=== PATIENT | male | born 1945 | race Caucasian/White ===

== ENCOUNTER → 2017-12-01 | Outpatient (CLI) | payer OTHER ==
[2017-12-01 16:14] LABS: BASOPHILS # (AUTO) 0.1 (0.0-0.1); BASOPHILS % 0.4 % (0.0-1.0); EOSINOPHILS # (AUTO) 0.3 (0.0-0.4); HEMOGLOBIN 13.2 g/dL (14.0-18.0); LYMPHOCYTES # (AUTO) 1.4 (1.0-3.2); LYMPHOCYTES % 8.5 % (18.0-39.1); MEAN CORPUSCULAR HEMOGLOBIN 29.6 pg (28-32); MEAN CORPUSCULAR HGB CONC 34.7 g/dL (31-35); MEAN CORPUSCULAR VOLUME 85.2 fL (81-99); MONOCYTES % 6.3 % (4.4-11.3); NEUTROPHILS # (AUTO) 13.3 (2.1-6.9); PLATELET COUNT 313 x10e3/uL (140-360); RED BLOOD COUNT 4.46 x10e6/uL (4.3-5.7); RED CELL DISTRIBUTION WIDTH 13.6 % (11.7-14.4)
== END ==
LOC: NPA 14:55
PROVIDERS: ATTEND Internal Medicine
DX: Z02.89 Encounter for other administrative examinations (principal)
CPT/HCPCS: 36415; 85025

== ENCOUNTER → 2017-12-02 | Outpatient (CLI) | payer OTHER ==
[2017-12-02 16:49] LABS: ANION GAP 15.8 mmol/L (8-16); BLOOD UREA NITROGEN 19 mg/dL (7-26); CARBON DIOXIDE 34 mmol/L (22-29); CHLORIDE 92 mmol/L (98-107); SODIUM 139 mmol/L (136-145)
[2017-12-02 16:50] LABS: ALANINE AMINOTRANSFERASE 17 IU/L (0-55); ALBUMIN 2.7 g/dL (3.5-5.0); ALBUMIN/GLOBULIN RATIO 0.6 (0.8-2.0); ALKALINE PHOSPHATASE 57 IU/L (40-150); BUN/CREATININE RATIO 27 (6-25); CALCIUM 9.1 mg/dL (8.4-10.2); EST GLOMERULAR FILTRATION RATE > 60 ML/MIN (60-); GLUCOSE 87 mg/dL (74-118); POTASSIUM 2.8 mmol/L (3.5-5.1)
[2017-12-02 16:51] LABS: BASOPHILS # (AUTO) 0.1 (0.0-0.1); BASOPHILS % 0.4 % (0.0-1.0); EOSINOPHILS # (AUTO) 0.3 (0.0-0.4); EOSINOPHILS % 2.6 % (0.0-6.0); HEMATOCRIT 38.3 % (38.2-49.6); HEMOGLOBIN 13.3 g/dL (14.0-18.0); LYMPHOCYTES # (AUTO) 1.5 (1.0-3.2); LYMPHOCYTES % 11.4 % (18.0-39.1); MEAN CORPUSCULAR HEMOGLOBIN 29.8 pg (28-32); MEAN CORPUSCULAR HGB CONC 34.7 g/dL (31-35); MEAN CORPUSCULAR VOLUME 85.7 fL (81-99); MONOCYTES % 7.4 % (4.4-11.3); NEUTROPHILS % 77.7 % (38.7-80.0); PLATELET COUNT 325 x10e3/uL (140-360); RED BLOOD COUNT 4.47 x10e6/uL (4.3-5.7); RED CELL DISTRIBUTION WIDTH 13.6 % (11.7-14.4)
== END ==
LOC: NPA 11:30
PROVIDERS: ATTEND Internal Medicine
DX: Z02.89 Encounter for other administrative examinations (principal)
CPT/HCPCS: 36415; 80053; 85025; 87070; 87205

== ENCOUNTER → 2017-12-06 | Outpatient (CLI) | payer OTHER ==
[2017-12-07 13:13] LABS: HEMATOCRIT 38.3 % (38.2-49.6); HEMOGLOBIN 13.3 g/dL (14.0-18.0); MEAN CORPUSCULAR HEMOGLOBIN 29.8 pg (28-32); MEAN CORPUSCULAR HGB CONC 34.7 g/dL (31-35); MEAN CORPUSCULAR VOLUME 85.7 fL (81-99); PLATELET COUNT 325 x10e3/uL (140-360); RED BLOOD COUNT 4.47 x10e6/uL (4.3-5.7); RED CELL DISTRIBUTION WIDTH 13.6 % (11.7-14.4)
[2017-12-07 13:17] LABS: ALANINE AMINOTRANSFERASE 17 IU/L (0-55); ALBUMIN 2.7 g/dL (3.5-5.0); ALBUMIN/GLOBULIN RATIO 0.6 (0.8-2.0); ALKALINE PHOSPHATASE 57 IU/L (40-150); ANION GAP 15.8 mmol/L (8-16); BLOOD UREA NITROGEN 19 mg/dL (7-26); BUN/CREATININE RATIO 27 (6-25); CALCIUM 9.1 mg/dL (8.4-10.2); CARBON DIOXIDE 34 mmol/L (22-29); CHLORIDE 92 mmol/L (98-107); EST GLOMERULAR FILTRATION RATE > 60 ML/MIN (60-); GLUCOSE 87 mg/dL (74-118); SODIUM 139 mmol/L (136-145)
[2017-12-07 13:18] LABS: POTASSIUM 2.8 mmol/L (3.5-5.1)
== END ==
LOC: NPA 09:15
PROVIDERS: ATTEND Internal Medicine
DX: Z02.89 Encounter for other administrative examinations (principal)
CPT/HCPCS: 36415; 80053; 85007; 85027; 87070; 87205

== ENCOUNTER → 2017-12-08 | Outpatient (CLI) | payer OTHER ==
[2017-12-08 14:19] LABS: ANION GAP 10.8 mmol/L (8-16); BLOOD UREA NITROGEN 13 mg/dL (7-26); BUN/CREATININE RATIO 14 (6-25); CARBON DIOXIDE 26 mmol/L (22-29); CHLORIDE 107 mmol/L (98-107); CREATININE, SERUM 0.92 mg/dL (0.72-1.25); EST GLOMERULAR FILTRATION RATE > 60 ML/MIN (60-); GLUCOSE 105 mg/dL (74-118); POTASSIUM 3.8 mmol/L (3.5-5.1); SODIUM 140 mmol/L (136-145)
== END ==
LOC: NPA 11:30
PROVIDERS: ATTEND Internal Medicine
DX: Z02.89 Encounter for other administrative examinations (principal)
CPT/HCPCS: 36415; 80048

== ENCOUNTER 2018-01-23 01:27 | Observation (INO) | payer MEDICARE ==
[2018-01-23] VITALS (8 sets, daily range): BP systolic 101–125; BP diastolic 55–67
[~2018-01-23] VITALS: Ht 195.6 cm; Wt 69.9 kg
[2018-01-23] MEDS ORDERED: DIATRIZOATE MEGL/DIATRIZOA SOD 30 ML BTL PO ONE (02:33)
[2018-01-23 03:09] LABS: BASOPHILS % 0.3 % (0.0-1.0); EOSINOPHILS % 0.2 % (0.0-6.0); HEMATOCRIT 35.8 % (38.2-49.6); HEMOGLOBIN 11.8 g/dL (14.0-18.0); LYMPHOCYTES # (AUTO) 1.8 (1.0-3.2); LYMPHOCYTES % 13.5 % (18.0-39.1); MEAN CORPUSCULAR HEMOGLOBIN 29.1 pg (28-32); MEAN CORPUSCULAR VOLUME 88.2 fL (81-99); MONOCYTES # (AUTO) 1.1 (0.2-0.8); MONOCYTES % 8.3 % (4.4-11.3); NEUTROPHILS # (AUTO) 10.1 (2.1-6.9); NEUTROPHILS % 77.4 % (38.7-80.0); PLATELET COUNT 457 x10e3/uL (140-360); RED BLOOD COUNT 4.06 x10e6/uL (4.3-5.7); RED CELL DISTRIBUTION WIDTH 14.8 % (11.7-14.4)
--- NOTE | 2018-01-23 03:11 | Diagnostic Imaging Report ---
CHEST SINGLE (PORTABLE), 01/23/2018 2:46 AM Technique: CHEST SINGLE (PORTABLE) Comparison: None available. Clinical history: \S\needs g-tube, trach with increased secretions \[id number] \S\254 Findings: See Impression Impression: Overlying apparatus obscures the lung apices. 1. Lines/Tubes: Tracheostomy. Right port tip overlies the high right atrium. 2. Normal cardiomediastinal silhouette for technique. 3. No consolidation, effusion or pneumothorax. Signed by: Dr Serena Sellers MD on 01/23/2018 3:07 AM
[2018-01-23 03:19] LABS: INR 1.18; PROTHROMBIN TIME 14.1 seconds (11.9-14.5)
[2018-01-23 03:20] LABS: PARTIAL THROMBOPLASTIN TIME 30.5 seconds (23.8-35.5)
[2018-01-23 03:26] LABS: ALANINE AMINOTRANSFERASE 15 IU/L (0-55); ALBUMIN 2.4 g/dL (3.5-5.0); ALBUMIN/GLOBULIN RATIO 0.5 (0.8-2.0); ALKALINE PHOSPHATASE 43 IU/L (40-150); ANION GAP 12.6 mmol/L (8-16); BLOOD UREA NITROGEN 24 mg/dL (7-26); BUN/CREATININE RATIO 44 (6-25); CALCIUM 9.7 mg/dL (8.4-10.2); CARBON DIOXIDE 30 mmol/L (22-29); CHLORIDE 97 mmol/L (98-107); CREATINE KINASE 24 IU/L (30-200); CREATININE, SERUM 0.55 mg/dL (0.72-1.25); EST GLOMERULAR FILTRATION RATE > 60 ML/MIN (60-); GLUCOSE 94 mg/dL (74-118); POTASSIUM 3.6 mmol/L (3.5-5.1); SODIUM 136 mmol/L (136-145)
[2018-01-23] MEDS ORDERED: ONDANSETRON HCL INJ 2 MG/ML VIAL IV PRN (03:45)
[2018-01-23] MEDS ORDERED: SODIUM CHLORIDE 0.9% 1000ML 1,000 ML IV SCH (03:45)
[2018-01-23] MEDS ORDERED: KETOROLAC TROMETHAMINE 30 MG/ML VIAL IV STA (03:56)
[2018-01-23] MEDS ORDERED: ACETAMINOPHEN 1000 MG/100 ML IV PRN (04:00)
[2018-01-23] MEDS ORDERED: MULTI-VITAMIN1 EACH PEG (04:04)
[2018-01-23] MEDS ORDERED: LANSOPRAZOLE30 MG PEG (04:04)
[2018-01-23] MEDS ORDERED: METFORMIN HCL850 MG PO (04:04)
[2018-01-23] MEDS ORDERED: COMBIVENT RESPIM4 GM IH (04:04)
[2018-01-23] MEDS ORDERED: ACIDOPHILUS1 EAC4 PEG (04:04)
[2018-01-23] MEDS ORDERED: ATIVAN1 MG PEG ×2 (04:04)
[2018-01-23] MEDS ORDERED: METOPROLOL TART25 MG PEG (04:04)
[2018-01-23] MEDS ORDERED: ATORVASTATIN CA20 MG PEG (04:04)
[2018-01-23] MEDS ORDERED: ACETAMINOPHEN325 M1 PEG (04:04)
[2018-01-23] MEDS ORDERED: THIAMINE HCL100 MG PEG (04:04)
[2018-01-23] MEDS ORDERED: MIRTAZAPINE15 MG PEG (04:04)
[2018-01-23] MEDS ORDERED: LISINOPRIL10 MG PEG (04:04)
[2018-01-23] MEDS ORDERED: FOLIC ACID1 MG PEG (04:04)
[2018-01-23] MEDS ORDERED: MELATONIN3 MG PEG (04:04)
[2018-01-23] MEDS ORDERED: FUROSEMIDE40 MG PEG (04:04)
[2018-01-23] MEDS ORDERED: ELIQUIS PEG (04:04)
[2018-01-23] MEDS ORDERED: ACETYLCYST200 MG/1 M INH (04:04)
[2018-01-23] MEDS ORDERED: DILTIAZEM HCL30 MG PEG (04:04)
[2018-01-23] MEDS ORDERED: ZINC OXIDE57 GM TOP (07:53)
[2018-01-23] MEDS ORDERED: LIDOCAINE HCL 2% LOCAL 20 ML VIAL ONE (09:40)
[2018-01-23] MEDS ORDERED: SODIUM CHLORIDE 0.9% 500ML 500 ML ONE (09:41)
[2018-01-23] MEDS ORDERED: SODIUM CHLORIDE 0.9% 1000ML 1,000 ML ONE (09:41)
[2018-01-23] MEDS ORDERED: IOPAMIDOL 300MG/ML 50ML INFUS..BTL IV ONE (09:41)
[2018-01-23] MEDS ORDERED: MIDAZOLAM HCL 2 MG/2 ML VIAL ONE (10:17)
[2018-01-23] MEDS ORDERED: FENTANYL CITRATE/PF 100MCG/2 ML INJ ONE (10:17)
--- NOTE | 2018-01-23 12:22 | Consultation ---
DATE OF CONSULTATION: January 23, 2018 REASON FOR CONSULTATION: Tracheostomy. HISTORY OF PRESENT ILLNESS: Mr. Hernandez is a resident at [facility] and I have been seeing the patient at [facility] for tracheostomy and chronic respiratory failure. Patient has history of laryngeal cancer and he underwent resection of laryngeal tumor and that resulted in a tracheostomy placement. He has a PEG tube as well. The patient was sent to the emergency room last night as the PEG tube fell out and needed G tube replacement. ER physician was unable to do it. The patient denies any complaints of chest pain, abdominal pain, nausea or vomiting. He is breathing okay. He complains of shortness of breath; however, he is saturating 90% on 28% to trach collar. IR was consulted and the G tube was replaced by them. REVIEW OF SYSTEMS: GENERAL: Denies any fever or chills. HEENT: Denies any head trauma or head injury. ENT denies any earache. CVS: Denies any chest pain. RESPIRATORY: Shortness of breath, has a tracheostomy. GI: Denies any nausea or vomiting. The rest of the review systems are negative except as in history of present illness. PAST MEDICAL HISTORY: History of malignant neoplasm of larynx, and the patient had resection of the larynx, hypertension, atrial fibrillation, possible COPD. Has history of smoking, tracheostomy. FAMILY AND SOCIAL HISTORY: Previous history of smoking. Currently living at [facility]. PHYSICAL EXAMINATION: VITALS: Temperature 97.8, pulse of 98, blood pressure 101/55. Respiratory rate of 18. O2 sat 98% on trach collar 28%. HEENT: Head is normocephalic, atraumatic. Pupils reactive. CHEST: Clear to auscultation bilaterally. He has a tracheostomy. HEART: S1 and S2 audible. ABDOMEN: The patient has a PEG tube in place. EXTREMITIES: No pedal edema. NEUROLOGIC: Awake and alert. LABORATORY DATA: White count 13,000. Hemoglobin 11.8, platelets 457,000. Chemistry: Sodium 136, potassium 3.6. Chloride 97, BUN 24, creatinine 0.5, INR is 1.18. ASSESSMENT AND PLAN: Mr. Hernandez is a 72-year-old male, care home resident of [facility]. Patient has a history of laryngeal cancer status post laryngectomy that resulted in a tracheostomy. Currently, respiratory status is stable. Status post G tube placement. Will follow along with Dr. Rodriguez here at [facility]. Patient can be a transferred back to [facility] once seen by Dr. Rodriguez. Stable from pulmonary standpoint. Job#: [id number]
[2018-01-23] MEDS ORDERED: IPRATROPIUM/ALBUTEROL SULFATE 4 GM INH INH PRN ×2 (13:15→17:30)
[2018-01-23] MEDS: LORAZEPAM 1 MG TAB PEG SCH (14:00)
--- NOTE | 2018-01-23 14:56 | History and Physical ---
HPI: A 72-year-old male with past medical history positive for laryngeal CA, hypertension, paroxysmal atrial fibrillation, CVA, COPD, status post tracheostomy, came here for an invasive radiology placement of feeding tube, which has been done already. Initially admitted to Dr. White, then transferred to Dr. Rodriguez today. REVIEW OF SYSTEMS: Patient is unable to communicate. PAST MEDICAL HISTORY: As I stated before, chronic respiratory failure, dysphagia, hypertension, paroxysmal atrial fibrillation, CVA, COPD, and laryngeal cancer. SOCIAL HISTORY: He has history of smoking. We do not know too much information beside that. PHYSICAL EXAMINATION VITAL SIGNS: Blood pressure 101/55, temperature 97.8, heart rate 75 per minute, respiratory rate is 18 per minute, oxygen saturation 98%. HEART: Showed irregularly irregular heart rate. Normal S1 and S2 sounds. LUNGS: Clear bilaterally. ABDOMEN: Soft. He had a PEG tube in place. EXTREMITIES: Show no evidence of cyanosis, edema, or trauma. LABORATORY DATA: On the blood work, we have BMP with a sodium of 136, potassium 3.6, chloride 97, CO2 of 30, BUN 24, creatinine 0.55, glucose 94. On the CBC, white blood count 13.0, hemoglobin 11.8, hematocrit 35.8, platelet count 450,000. PT 14.1, PTT 30.5. INR 1.18. AST 22, ALT 15. Total bilirubin 0.4, alkaline phosphatase 43. FINAL IMPRESSION 1. Dysphagia, status post percutaneous endoscopic gastrostomy tube placement, placed by invasive radiology. 2. Chronic respiratory failure. 3. Hypertension. 4. Paroxysmal atrial fibrillation. 5. Cerebrovascular accident. 6. Chronic obstructive pulmonary disease. PLAN OF TREATMENT: We are going to restart the PEG tube feedings, Jevity at 45 mL an hour, free water 200 mL q.6 hours. We are going to resume the home medications. Continue to monitor blood sugar q.6 hours. We might need to change the feeding tube to Glucerna since the patient has a history of diabetes. Job#: [id number] VAS
[2018-01-23] MEDS: LACTOBACILLUS ACIDOPHILUS CAPSULE PEG SCH (15:30)
[2018-01-23] MEDS: ACETAMINOPHEN 325 MG TAB PEG PRN ×2 (15:30→21:30)
[2018-01-23] MEDS: METFORMIN HCL 850 MG TAB PO SCH (15:30)
[2018-01-23] MEDS: METOPROLOL TARTRATE 25 MG TAB PEG SCH ×2 (15:30→21:30)
[2018-01-23] MEDS: APIXABAN 5 MG TABLET PO SCH (15:30)
[2018-01-23] MEDS: DILTIAZEM HCL 30 MG TAB PEG SCH ×2 (15:30→21:30)
[2018-01-23] MEDS: ACETYLCYSTEINE 20% INHAL SOLN 30 ML VIAL INH SCH (19:55)
[2018-01-23] MEDS ORDERED: ZINC OXIDE 10% TOP SCH (21:00)
[2018-01-23] MEDS: MELATONIN 3 MG TAB PEG SCH (21:30)
[2018-01-23] MEDS: PANTOPRAZOLE SODIUM 40 MG SUSPDR.PKT PEG SCH (21:30)
[2018-01-23] MEDS: ATORVASTATIN 20 MG TAB PEG SCH (21:30)
[2018-01-23] MEDS: MIRTAZAPINE 15 MG TAB PEG SCH (21:30)
[2018-01-23] MEDS: LORAZEPAM 1 MG TAB PEG PRN (22:05)
[2018-01-23] MEDS: ZINC OXIDE 30 GM TUBE TOP SCH (22:10)
[2018-01-24] VITALS (8 sets, daily range): BP systolic 98–134; BP diastolic 55–79
[2018-01-24] MEDS: LORAZEPAM 1 MG TAB PEG SCH ×2 (01:15→13:15)
[2018-01-24] MEDS: DILTIAZEM HCL 30 MG TAB PEG SCH ×3 (06:06→22:00)
[2018-01-24] MEDS: METOPROLOL TARTRATE 25 MG TAB PEG SCH ×3 (06:06→22:00)
[2018-01-24] MEDS: ACETYLCYSTEINE 20% INHAL SOLN 30 ML VIAL INH SCH ×4 (07:00→20:15)
[2018-01-24] MEDS: ALBUTEROL/IPRATROPIUM 3 ML NEB NEB PRN ×3 (07:40→20:15)
[2018-01-24] MEDS: FOLIC ACID 1 MG TAB PEG SCH (09:15)
[2018-01-24] MEDS: LACTOBACILLUS ACIDOPHILUS CAPSULE PEG SCH ×2 (09:15→17:00)
[2018-01-24] MEDS: MULTIVITAMINS/MINERALS TAB PEG SCH (09:15)
[2018-01-24] MEDS: ACETAMINOPHEN 325 MG TAB PEG PRN ×2 (09:15→14:28)
[2018-01-24] MEDS: APIXABAN 5 MG TABLET PO SCH ×2 (09:15→17:00)
[2018-01-24] MEDS: METFORMIN HCL 850 MG TAB PO SCH ×2 (09:15→17:00)
[2018-01-24] MEDS: THIAMINE HCL 100 MG TAB PEG SCH (09:15)
[2018-01-24] MEDS: FUROSEMIDE 40 MG TAB PEG SCH (09:15)
[2018-01-24] MEDS: LISINOPRIL 10 MG TAB PEG SCH (09:15)
[2018-01-24] MEDS: ATORVASTATIN 20 MG TAB PEG SCH (22:00)
[2018-01-24] MEDS: MELATONIN 3 MG TAB PEG SCH (22:00)
[2018-01-24] MEDS: MIRTAZAPINE 15 MG TAB PEG SCH (22:00)
[2018-01-24] MEDS: PANTOPRAZOLE SODIUM 40 MG SUSPDR.PKT PEG SCH (22:00)
[2018-01-24] MEDS: ZINC OXIDE 30 GM TUBE TOP SCH (22:00)
[2018-01-25] VITALS: BP 92/52
[2018-01-25] MEDS: ACETYLCYSTEINE 20% INHAL SOLN 30 ML VIAL INH SCH ×3 (01:00→12:28)
[2018-01-25] MEDS: LORAZEPAM 1 MG TAB PEG SCH ×2 (03:38→13:08)
[2018-01-25 04:00] VITALS: BP 108/60
[2018-01-25] MEDS: DILTIAZEM HCL 30 MG TAB PEG SCH ×2 (05:51→16:21)
[2018-01-25] MEDS: METOPROLOL TARTRATE 25 MG TAB PEG SCH ×2 (05:52→16:21)
[2018-01-25 08:10] VITALS: BP 105/59
[2018-01-25] MEDS: LISINOPRIL 10 MG TAB PEG SCH (09:00)
[2018-01-25] MEDS: MULTIVITAMINS/MINERALS TAB PEG SCH (09:16)
[2018-01-25] MEDS: FUROSEMIDE 40 MG TAB PEG SCH (09:16)
[2018-01-25] MEDS: LACTOBACILLUS ACIDOPHILUS CAPSULE PEG SCH (09:16)
[2018-01-25] MEDS: APIXABAN 5 MG TABLET PO SCH (09:16)
[2018-01-25] MEDS: FOLIC ACID 1 MG TAB PEG SCH (09:16)
[2018-01-25] MEDS: THIAMINE HCL 100 MG TAB PEG SCH (09:16)
[2018-01-25] MEDS: METFORMIN HCL 850 MG TAB PO SCH (09:16)
[2018-01-25] MEDS: LORAZEPAM 1 MG TAB PEG PRN (10:39)
--- NOTE | 2018-01-25 10:59 | Diagnostic Imaging Report ---
Exam: G-tube replacement History: Previously placed G-tube had become pulled out. ER physician is unable to replace the tube through the tract. Comparison: None available Findings: The tract of the G-tube in the epigastric region was probed with a dilator. With the use of this dilator and a 0.035 " Bentson wire, the tract was able to be recannulized. A new 12 Norwegian gastrostomy tube was then placed through the catheter. The retention balloon was inflated with 7 cc of saline. Contrast injection confirms placement into the stomach. Fluoroscopy time: 4.0 minutes Total dose: 986.1 cGycm2 Impression: Successful recannulization of the old G-tube tract with placement of a new 12 Norwegian gastrostomy tube. Signed by: Dr. Jose Toro DO on 01/25/2018 7:05 AM
[2018-01-25 11:06] VITALS: BP 105/59
[2018-01-25] MEDS ORDERED: VANCOMYCIN 250MG/5ML ORAL SOLN PEG SCH (12:00)
[2018-01-25] MEDS: ALBUTEROL/IPRATROPIUM 3 ML NEB NEB PRN (12:28)
[2018-01-25 12:40] VITALS: BP 112/61
[2018-01-25 16:26] VITALS: BP 128/65
[2018-01-25] MEDS ORDERED: ALBUTEROL/IPRATROPIUM 3 ML NEB ONE (19:07)
[2018-01-25] MEDS ORDERED: ATORVASTATIN 40 MG TAB PEG SCH (21:00)
[2018-01-26] MEDS ORDERED: MULTIVITAMINS 5 ML LIQUID PEG SCH (09:00)
--- NOTE | 2018-03-12 23:55 | Discharge Summary ---
CHIEF COMPLAINT: Dysphagia. FINAL DIAGNOSES: 1. Dysphagia, status post gastrostomy tube placement. 2. Laryngeal carcinoma. PROCEDURES: G-tube replacement. The procedure was carried out by interventional radiology. DISPOSITION: [facility] A 72-year-old male with history of laryngeal CA, hypertension, paroxysmal atrial fib, CVA, COPD, status post trach, presents here for replacement of PEG tube. Patient is noted to be unable to communicate. In the ER, BP was 101/55, temperature 97.8, pulse 75. Rhythm strip was showing some irregular rate. Lungs were clear. Abdomen shows to be soft. There is evidence of the PEG tube stoma. Admission was made for care regarding dysphagia, status post PEG tube placement, now admitted for replacement by interventional radiology. With admission regarding the patient's history of tracheostomy, he was being followed by Dr White, pulmonary. His findings are revealing history of laryngeal cancer, status post laryngectomy that resulted in tracheostomy. Currently respiratory status is stable. Will continue to follow with this patient as his care continues in this facility. Patient is stable from a pulmonary standpoint. Patient is on the med-surg floor, placed n.p.o. initially, was undergoing replacement of his PEG tube by interventional radiology. His lab studies were stable. He began his tube feeding once cleared. His routine daily medications were continuing as well. During his stay, he was having some issues with loose stools. He was being checked for C. diff. Stability continued to be noted, response positive from care. The patient was able to be transferred back to the [facility] on January 25, 2018 in guarded condition. EKG shows atrial fibrillation with a rapid ventricular response, right bundle-branch block. As mentioned, he underwent replacement of his PEG tube by interventional radiology. It was attempted by the ER physician at the time, but the physician was unable to replace the tube, now it was successfully recanalized by interventional radiology with a guidewire and dilated. The patient returned to the [facility], January 25, 2018. At that facility, he will continue on his current feeding orders. He is on a limited code status. His food status will be Osmolite 1.2 at 65 mL per hour along with 100 mL of free water flush every 4 hours. I will be monitoring the patient's care at that location, evaluating his status routinely. Staff will be contacting me as needed. Dictated By: ELLIOT Paz Job#: [id number]
== END 2018-01-25 17:42 ==
LOC: ER 01:27 → MED/SURG 03:50 → ERHOLD 03:53 → MED/SURG 04:14 → IMCU 01-25 00:18
DX: Z43.1 Encounter for attention to gastrostomy (principal); C32.9 Malignant neoplasm of larynx, unspecified; I48.0 Paroxysmal atrial fibrillation; Z86.73 Personal history of transient ischemic attack (TIA), and cerebral infarction without residual deficits; Z93.0 Tracheostomy status; J96.10 Chronic respiratory failure, unspecified whether with hypoxia or hypercapnia; R13.10 Dysphagia, unspecified; Z87.891 Personal history of nicotine dependence; J44.9 Chronic obstructive pulmonary disease, unspecified; R19.7 Diarrhea, unspecified
CPT/HCPCS: 36415 ×3; 43760; 49440; 71045; 74470; 80053; 82550; 82553; 82948 ×3; 84484; 85025; 85610; 85730; 87045; 87493; 92610; 93005; 94640 ×3; 99284; C1769; G0378 ×3; J2001; J2250; J3411 ×2; J7030; J7040; Q9967